=== PATIENT | male | born 1955 | race Caucasian/White ===

== ENCOUNTER 2017-02-12 07:16 | Outpatient (CLI) | payer BC ==
[2017-02-12 08:34] LABS: BASOPHILS % (AUTO) 0.4 % (0.0-2.0); EOSINOPHILS # (AUTO) 0.1 /CMM (0.0-0.7); EOSINOPHILS % (AUTO) 1.6 % (0.0-6.0); HEMATOCRIT 39 % (39-51); HEMOGLOBIN 12.9 g/dL (13.5-17.5); LYMPHOCYTES # (AUTO) 1.4 /CMM (0.8-4.8); LYMPHOCYTES % (AUTO) 30.8 % (20.0-44.0); MEAN CORPUSCULAR HEMOGLOBIN 28 PG (26.0-33.0); MEAN CORPUSCULAR HGB CONC 33 g/dl (31.0-36.0); MEAN CORPUSCULAR VOLUME 84 fL (80-96); MONOCYTES # (AUTO) 0.3 /CMM (0.1-1.30); MONOCYTES % (AUTO) 7.4 % (2.0-12.0); NEUTROPHILS # (AUTO) 2.7 /CMM (1.8-8.9); NEUTROPHILS % (AUTO) 59.8 % (43.0-81.0); PLATELET COUNT (AUTO) 235 /CMM (150-450); RDW COEFFICIENT OF VARIATION 14.1 (11.5-15.0); RED BLOOD CELL COUNT(AUTO) 4.61 MIL/uL (4.5-6.0); WHITE BLOOD COUNT (AUTO) 4.5 K/uL (4.3-11.0)
[2017-02-12 08:44] LABS: ALBUMIN 3.9 g/dL (3.4-5.0); BILIRUBIN,TOTAL 0.3 mg/dL (0.2-1.0); CALCIUM, SERUM 8.8 mg/dL (8.5-10.1); CREATININE 1.3 mg/dL (0.6-1.3); POTASSIUM 4.4 mmol/L (3.5-5.1); TOTAL PROTEIN, SERUM 7.1 g/dL (6.4-8.2)
[2017-02-12 08:46] LABS: APPEARANCE,URINE CLEAR (CLEAR); BILIRUBIN,URINE NEGATIVE (NEGATIVE); BLOOD, URINE NEGATIVE Ery/uL (NEGATIVE); COLOR,URINE YELLOW (YELLOW); KETONES,URINE NEGATIVE (NEGATIVE); LEUKOCYTE ESTERASE ,URINE NEGATIVE (NEGATIVE); NITRITE, URINE NEGATIVE (NEGATIVE); PH,URINE 5.5 (5.0-8.0); PROTEIN,URINE NEGATIVE (NEGATIVE); UGLUCOSE TRACE mg/dL (NEGATIVE); UROBILINOGEN,URINE 0.2 EU/dL (0.2)
[2017-02-12 09:01] LABS: PROSTATE SPECIFIC ANTIGEN SCR 1.97 ng/mL (0.00-4.00); THYROID STIMULATING HORMONE 2.632 uIU/mL (0.358-3.74)
[2017-02-12 09:59] LABS: ADD URINE CULTURE NO; BACTERIA,URINE None seen /HPF (None Seen); RBC,URINE NONE SEEN /HPF (0-2); SQUAMOUS EPITHELIAL CELL,UR Few /HPF (None Seen); WBC,URINE 0-2 /HPF (0-3)
[2017-02-13 11:22] LABS: VIT D, 25-HYDROXY 30.8 ng/mL (30.0-100.0)
== END 2017-02-12 23:59 | disposition home or self-care (01) ==
LOC: LAB 07:16
PROVIDERS: ATTEND Legal Medicine
DX: Z00.00 Encounter for general adult medical examination without abnormal findings (principal); E11.9 Type 2 diabetes mellitus without complications; I10 Essential (primary) hypertension; E78.00 Pure hypercholesterolemia, unspecified; E55.9 Vitamin D deficiency, unspecified
CPT/HCPCS: 36415; 80053-TC; 80061-TC; 81000-TC; 82043; 82306; 82728-TC; 82746; 83540-TC; 84153-TC; 84402-TC; 84443-TC; 84550-TC; 85025-TC

== ENCOUNTER 2017-09-11 22:19 | Inpatient (IN) | payer BC ==
[~2017-09-11] VITALS: Ht 175.3 cm; Wt 77.6 kg
--- NOTE | 2017-09-11 22:36 | NUR ---
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 PATIENT DENIES PAIN AT THIS TIME, AFEBRILE. NO SOB,. VSS. GOWNED PT AND PLACED ON TELE MONITOR. PENDING MD MCCRAY
--- NOTE | 2017-09-11 22:40 | NUR ---
IV ACCESS STARTED. BLOOD DRAWN FOR LABS.
[2017-09-11] MEDS ORDERED: ASPIRIN 81 MG TAB.CHEW ONE (22:51)
--- NOTE | 2017-09-11 22:54 | NUR ---
PT REPORTS HE TOOK ASA 81MG AT 7PM AND 325MG ASA AT 9PM TODAY. AWARE.
[2017-09-11] MEDS ORDERED: ASPIRIN 81 MG TAB.CHEW PO ONE (23:00)
[2017-09-11 23:11] LABS: BASOPHILS % (AUTO) 0.4 % (0.0-2.0); EOSINOPHILS # (AUTO) 0.1 /CMM (0.0-0.7); HEMATOCRIT 40 % (39-51); HEMOGLOBIN 13.4 g/dL (13.5-17.5); LYMPHOCYTES # (AUTO) 1.5 /CMM (0.8-4.8); LYMPHOCYTES % (AUTO) 24.8 % (20.0-44.0); MEAN CORPUSCULAR HEMOGLOBIN 28 PG (26.0-33.0); MEAN CORPUSCULAR HGB CONC 34 g/dl (31.0-36.0); MEAN CORPUSCULAR VOLUME 84 fL (80-96); MONOCYTES # (AUTO) 0.4 /CMM (0.1-1.30); MONOCYTES % (AUTO) 6.6 % (2.0-12.0); NEUTROPHILS % (AUTO) 67.2 % (43.0-81.0); PLATELET COUNT (AUTO) 235 /CMM (150-450); RDW COEFFICIENT OF VARIATION 13.5 (11.5-15.0); RED BLOOD CELL COUNT(AUTO) 4.75 MIL/uL (4.5-6.0); WHITE BLOOD COUNT (AUTO) 5.9 K/uL (4.3-11.0)
[2017-09-11] MEDS ORDERED: CHOL100040 PO (23:14)
[2017-09-11] MEDS ORDERED: OMEG500C PO (23:14)
[2017-09-11] MEDS ORDERED: METO25TA6 PO (23:14)
[2017-09-11] MEDS ORDERED: GLIM4TAB2 PO (23:14)
[2017-09-11] MEDS ORDERED: ENAL5TAB PO (23:14)
[2017-09-11] MEDS ORDERED: INSU3INS6 SUBCUT (23:14)
[2017-09-11] MEDS ORDERED: CLOP75TA2 PO (23:14)
[2017-09-11] MEDS ORDERED: FENO160T PO (23:14)
[2017-09-11] MEDS ORDERED: METF850T2 PO (23:14)
[2017-09-11] MEDS ORDERED: SIMV40TA5 PO (23:14)
[2017-09-11] MEDS ORDERED: ASPI81TA2 PO (23:14)
[2017-09-11 23:25] LABS: CALCIUM, SERUM 9.6 mg/dL (8.5-10.1); CARBON DIOXIDE 32 mmol/L (21-32); CHLORIDE 105 mmol/L (98-107); CREATININE 1.9 mg/dL (0.6-1.3); GLUCOSE 251 mg/dL (74-106); POTASSIUM 4.4 mmol/L (3.5-5.1); SODIUM SERUM 140 mmol/L (136-145); UREA NITROGEN, BLOOD 32 mg/dL (7-18)
[2017-09-11 23:28] LABS: ALANINE AMINOTRANSFERASE 29 U/L (12-78); ALKALINE PHOSPHATASE 41 U/L (46-116); ASPARTATE AMINOTRANSFERASE 16 U/L (15-37); BILIRUBIN,DIRECT 0.1 mg/dL (0.0-0.2); BILIRUBIN,TOTAL 0.3 mg/dL (0.2-1.0); TOTAL PROTEIN, SERUM 7.4 g/dL (6.4-8.2)
[2017-09-11 23:30] LABS: TROPONIN I < 0.017 ng/mL (0.00-0.056)
[2017-09-11 23:37] LABS: D-DIMER 0.19 mg/L(FEU (0.17-0.50); INR 1.01 (0.87-1.13); PROTHROMBIN TIME 10.5 SECS (9.5-12.7)
--- NOTE | 2017-09-12 00:09 | NUR ---
DR. PAULINE GUEVARA.
--- NOTE | 2017-09-12 00:40 | NUR ---
REPORT GIVEN TO LISA FITCH FOR TELE 108
[2017-09-12 01:00] VITALS: BP 145/84
[2017-09-12] MEDS ORDERED: IV NS 0.9% 1,000 ML IV PRN (01:00)
[2017-09-12] MEDS ORDERED: DEXTROSE 50%-WATER 50 ML DISP.SYRIN IV PRN ×2 (01:00→10:30)
[2017-09-12] MEDS ORDERED: NITROGLYCERIN PACKET 1 GM PACKET ONE (01:28)
[2017-09-12] MEDS ORDERED: MORPHINE SULFATE INJ 2 MG/ML DISP.SYRIN IV PRN (01:30)
[2017-09-12] MEDS ORDERED: ONDANSETRON HCL/PF 4 MG/2 ML VIAL IV PRN (01:30)
[2017-09-12] MEDS ORDERED: ACETAMINOPHEN 325 MG TABLET PO PRN (01:30)
[2017-09-12] MEDS ORDERED: NITROGLYCERIN 30 GM TUBE TP SCH (01:30)
[2017-09-12] MEDS: NITROGLYCERIN PACKET 1 GM PACKET TOP SCH ×5 (01:33→23:37)
[2017-09-12] MEDS ORDERED: EPINEPHRINE (1:1000) 1 MG/ML AMPUL ONE (01:56)
[2017-09-12] MEDS ORDERED: MORPHINE SULFATE INJ 2 MG/ML DISP.SYRIN ONE (02:30)
[2017-09-12] MEDS ORDERED: DEXAMETHASONE SOD PHOSPHATE 10 MG/ML VIAL ONE (03:16)
[2017-09-12] MEDS ORDERED: diphenhydrAMINE HCL 50 MG/ML VIAL ONE (03:16)
[2017-09-12] MEDS ORDERED: FAMOTIDINE/PF INJ 20 MG/2 ML VIAL IV ONE (03:16)
[2017-09-12 04:00] VITALS: BP 113/60
[2017-09-12 06:58] LABS: BASOPHILS % (AUTO) 0.4 % (0.0-2.0); EOSINOPHILS # (AUTO) 0.1 /CMM (0.0-0.7); EOSINOPHILS % (AUTO) 1.6 % (0.0-6.0); HEMATOCRIT 37 % (39-51); HEMOGLOBIN 12.6 g/dL (13.5-17.5); LYMPHOCYTES # (AUTO) 2.2 /CMM (0.8-4.8); MEAN CORPUSCULAR HEMOGLOBIN 29 PG (26.0-33.0); MEAN CORPUSCULAR HGB CONC 34 g/dl (31.0-36.0); MEAN CORPUSCULAR VOLUME 84 fL (80-96); MONOCYTES # (AUTO) 0.5 /CMM (0.1-1.30); MONOCYTES % (AUTO) 7.9 % (2.0-12.0); NEUTROPHILS % (AUTO) 58.1 % (43.0-81.0); PLATELET COUNT (AUTO) 177 /CMM (150-450); RDW COEFFICIENT OF VARIATION 13.9 (11.5-15.0); WHITE BLOOD COUNT (AUTO) 6.9 K/uL (4.3-11.0)
[2017-09-12 08:00] VITALS: BP 111/61
--- NOTE | 2017-09-12 08:00 | NUR ---
Initial Note Received bed side report at this time. Resting in bed, denying pain, denying chest pain. SR on telemonitor. no complications with IV, maintenance fluids infusing. ambulatory, steady gait. utilizes urinal. discussed plan of care. pt. verbalized understanding. call light in reach.
[2017-09-12] MEDS: PANTOPRAZOLE 40 MG VIAL IV SCH (09:00)
[2017-09-12] MEDS: BLOOD SUGAR DIAGNOSTIC 1 EACH STRIP IN SCH ×4 (09:10→22:21)
[2017-09-12] MEDS: ASPIRIN 81 MG TAB.CHEW PO SCH (09:11)
--- NOTE | 2017-09-12 09:22 | NUR ---
RN NOTE computer system down until 0900- unable to see orders. accucheck done late, result- 154. no s/s of hyperglycemia. patient states he does not take regular insulin at home, instead takes Lantus in the morning. will inform MD.
--- NOTE | 2017-09-12 09:30 | NUR ---
TELE1/RN ENDORSED TO CONTINUE CARE REPORT RECEIVED FROM NURSE HOPE TO CONTINUE CARE. PT RECEIVED AWAKE SITTING IN BED, A/O X 4, PT DENIES ANY SYMPTOMS, NO ACUTE CHANGE OF CONDITION NOTED. ON ROOM AIR SATURATING @ 100%, LUNG SOUNDS CLEAR. ON TELE WITH SINUS RHYTHM, HR 59. WITH ON GOING IV INFUSION OF NS @ 75CC/HR, IV SITE PATENT WITH NO S/S OF INFECTION. PT ON NPO STATUS AT THIS TIME. REMAINING AM MEDS TO BE GIVEN. CL WITHIN REACHED AND SAFETY MAINTAINED. ON GOING MONITORING.
[2017-09-12] MEDS ORDERED: INSULIN REGULAR, HUMAN 100 UNIT/ML 3 ML VIAL SQ PRN (10:30)
[2017-09-12 10:35] LABS: CALCIUM, SERUM 8.9 mg/dL (8.5-10.1); CREATININE 1.5 mg/dL (0.6-1.3); POTASSIUM 4.3 mmol/L (3.5-5.1)
--- NOTE | 2017-09-12 10:35 | NUR ---
TELE1/RN ORDER VERIFIED SPOKE TO DR. CARPENTER TO VERIFY ADMITTING ORDERS: ON CT OF THE ABDOMEN AND PELVIS, TO CANCELL D/T CREATININE LEVEL OF 1.9, ALSO HOLING OF HOME MEDS, LANTUS 10 UNITS DAILY, PER MD TO RESUME AFTER PT HAS COMPLETED MYOCARDIAL TEST AND RESUME DIET OF 2GM, 1800 CALORIE DIET. ORDERS NOTED AND CARRIED. PT MADE AWARE.
[2017-09-12] MEDS: ENOXAPARIN SODIUM 80 MG/0.8 ML DISP.SYRIN SQ SCH ×2 (10:36→20:15)
--- NOTE | 2017-09-12 10:45 | NUR ---
TELE1/RN MYOCARDIAL STRESS TEST CONSENT FOR MYOCARDIAL STRESS TEST OBTAINED FROM PT. CONSENT FILED IN PT'S CHART.
[2017-09-12 12:00] VITALS: BP 107/62
[2017-09-12] MEDS ORDERED: BLOOD SUGAR DIAGNOSTIC 1 EACH STRIP IN SCH (12:00)
--- NOTE | 2017-09-12 12:20 | NUR ---
TELE1/RN NOON ROUNDS GLUCOSE CHECKED, 134, NO COVERAGE TO BE GIVEN, PT ON NPO STATUS. PT DENIES ANY CHEST PAIN, NO. 2 TROPONIN DRAWN. NO ACUTE CHANGE OF CONDITION NOTED. ON GOING MONITORING.
--- NOTE | 2017-09-12 13:45 | NUR ---
TELE1/RN MYOCARDIAL STRESS TEST PT LEFT TELE1 UNIT IN STABLE CONDITION VIA WHEELCHAIR ACCOMPANIED BY OFFICE HELPER STEWART FOR MYOCARDIAL STRESS TEST.
[2017-09-12] MEDS ORDERED: REGADENOSON 0.4 MG/5 ML DISP.SYRIN IVP ONE (14:00)
--- NOTE | 2017-09-12 14:35 | NUR ---
TELE1/RN BACK FROM STRESS TEST PT RETURNED TO TELE1 FLOOR IN STABLE CONDITION. MONITORING CONTINUED.
[2017-09-12 16:00] VITALS: BP 113/60
[2017-09-12] MEDS: INSULIN REGULAR, HUMAN 100 UNIT/ML 3 ML VIAL SQ PRN ×2 (17:11→22:22)
--- NOTE | 2017-09-12 17:45 | NUR ---
TELE1/RN AFTERNOON ROUNDS PT AWAKE SITTING IN BED WITH AT BEDSIDE, DENIES ANY SYMPTOMS, NO ACUTE CHANGE OF CONDITION. SCHEDULED PM MEDS GIVEN. ON GOING MONITORING.
--- NOTE | 2017-09-12 19:19 | NUR ---
TELE1/RN AM SHIFT END NOTES ALL NEEDS MET. NO ACUTE CHANGE OF CONDITION NOTED DURING THE SHIFT. PT ENDORSED TO PM NURSE TO CONTINUE CARE. CL WITHIN REACHED AND SAFETY MAINTAINED.
[2017-09-12 20:00] VITALS: BP 113/65
[2017-09-12] MEDS ORDERED: CALCIUM CARBONATE 500 MG TAB.CHEW PO PRN (20:00)
--- NOTE | 2017-09-12 20:00 | NUR ---
RN:TELE: PT RECEIVED IN BED A/OX4, DENIES CHEST PAIN OR SOB. NO DISTRESS NOTED. AT THE BEDSIDE. EXPLAINED ALL POC. CALL LIGHT IN REACH. PT ABLE TO MAKE NEEDS KNOWN.
[2017-09-12] MEDS: METOPROLOL TARTRATE 25 MG TABLET PO SCH (20:14)
[2017-09-12] MEDS ORDERED: INSULIN DETEMIR 100 UNIT/ML CARTRIDGE SQ SCH (22:00)
[2017-09-12] MEDS ORDERED: LANTUS SQ SCH (22:00)
[2017-09-12] MEDS ORDERED: SIMVASTATIN 40 MG TABLET PO SCH (22:00)
--- NOTE | 2017-09-12 22:35 | NUR ---
RN:TELE: PT COMPLAINING OF MIDBACK PAIN 07/03. PT GIVEN MORPHINE PER MD ORDERS. VITAL SIGNS TAKEN AND ARE STABLE. PT REPORTS IMPROVEMENT OF PAIN AFTER MORPHINE ADMIN. SPOKE WITH COOKING SHOW HOST REGARDING POSSIBLE BACK PAIN BEING RELATED TO KIDNEYS RATHER THAN CARDIAC IN NATURE. NEW ORDERS RECEIVED FOR RENAL US, UA AND URINE CX. UPDATED FAMILY AND PT REGARDING POC. ALL NEEDS ATTENDED TO. WILL CONTINUE TO MONITOR CLOSELY.
[2017-09-13] VITALS: BP 95/59
--- NOTE | 2017-09-13 01:09 | NUR ---
RN:TELE: PT REPORTS MINIMAL BACK PAIN. AM LABS ORDERED PER MD. 0000 NITRO HELD DUE TO SPECIFIED PARAMETERS SBP LESS THAN 110, PT MIDNIGHT BP WAS 95 SYSTOLIC. NO DISTRESS NOTED. WILL CONTINUE TO MONITOR CLOSELY.
--- NOTE | 2017-09-13 03:57 | NUR ---
RN:TELE: PT DENIES ANY COMPLAINTS AT THIS TIME AND REPORTS SLEEPING WELL. WILL CONTINUE TO MONITOR CLOSELY.
[2017-09-13 04:00] VITALS: BP 97/59
[2017-09-13] MEDS: NITROGLYCERIN PACKET 1 GM PACKET TOP SCH ×2 (06:00→12:09)
[2017-09-13 06:33] LABS: BASOPHILS % (AUTO) 0.4 % (0.0-2.0); EOSINOPHILS # (AUTO) 0.1 /CMM (0.0-0.7); EOSINOPHILS % (AUTO) 1.5 % (0.0-6.0); HEMATOCRIT 36 % (39-51); HEMOGLOBIN 12.1 g/dL (13.5-17.5); LYMPHOCYTES # (AUTO) 1.7 /CMM (0.8-4.8); LYMPHOCYTES % (AUTO) 28.6 % (20.0-44.0); MEAN CORPUSCULAR HEMOGLOBIN 29 PG (26.0-33.0); MEAN CORPUSCULAR HGB CONC 34 g/dl (31.0-36.0); MEAN CORPUSCULAR VOLUME 84 fL (80-96); MONOCYTES # (AUTO) 0.4 /CMM (0.1-1.30); NEUTROPHILS # (AUTO) 3.8 /CMM (1.8-8.9); NEUTROPHILS % (AUTO) 62.5 % (43.0-81.0); PLATELET COUNT (AUTO) 202 /CMM (150-450); RDW COEFFICIENT OF VARIATION 13.7 (11.5-15.0); RED BLOOD CELL COUNT(AUTO) 4.24 MIL/uL (4.5-6.0)
[2017-09-13 06:55] LABS: APPEARANCE,URINE CLEAR (CLEAR); BILIRUBIN,URINE NEGATIVE (NEGATIVE); BLOOD, URINE NEGATIVE Ery/uL (NEGATIVE); COLOR,URINE YELLOW (YELLOW); KETONES,URINE NEGATIVE (NEGATIVE); LEUKOCYTE ESTERASE ,URINE NEGATIVE (NEGATIVE); NITRITE, URINE NEGATIVE (NEGATIVE); PROTEIN,URINE NEGATIVE (NEGATIVE); UGLUCOSE NEGATIVE (NEGATIVE); UROBILINOGEN,URINE 0.2 EU/dL (0.2)
[2017-09-13 07:13] LABS: ALBUMIN 3.5 g/dL (3.4-5.0); BILIRUBIN,TOTAL 0.3 mg/dL (0.2-1.0); CALCIUM, SERUM 8.6 mg/dL (8.5-10.1); CREATININE 1.3 mg/dL (0.6-1.3); MAGNESIUM 1.6 mg/dL (1.8-2.4); PHOSPHORUS 4.2 mg/dL (2.5-4.9); POTASSIUM 3.9 mmol/L (3.5-5.1); TOTAL PROTEIN, SERUM 6.4 g/dL (6.4-8.2)
[2017-09-13 08:00] VITALS: BP_SYST 123; BP_DIAS 64; BP_DIAS 69
--- NOTE | 2017-09-13 08:00 | NUR ---
TELE1/RN AM SHIFT INITIAL NOTES RECEIVED PT AWAKE SITTING IN BED, A/O X 4, DENIES ANY CHEST PAIN, NO SOB NOTED. ON ROOM AIR SATURATING @ 96%, LUNG SOUNDS CLEAR. ON TELE WITH SINUS RHYTHM, HR 66. IV SITE FLUSHED, PATENT, WITH NO S/S OF INFECTION, SL. PT IS COMFORTABLE AT THIS TIME. SCHEDULED AM MEDS TO BE GIVEN. AWAITING FOR ULTRASOUND OF THE KIDNEYS. CL WITHIN REACHED AND SAFETY MAINTAINED. ON GOING MONITORING.
[2017-09-13] MEDS: BLOOD SUGAR DIAGNOSTIC 1 EACH STRIP IN SCH ×2 (08:07→11:57)
[2017-09-13] MEDS: ASPIRIN 81 MG TAB.CHEW PO SCH (08:08)
[2017-09-13] MEDS: METOPROLOL TARTRATE 25 MG TABLET PO SCH (08:08)
[2017-09-13] MEDS: ENOXAPARIN SODIUM 80 MG/0.8 ML DISP.SYRIN SQ SCH (08:09)
[2017-09-13] MEDS: INSULIN REGULAR, HUMAN 100 UNIT/ML 3 ML VIAL SQ PRN ×2 (08:09→12:08)
[2017-09-13] MEDS: PANTOPRAZOLE 40 MG VIAL IV SCH (08:10)
--- NOTE | 2017-09-13 10:00 | NUR ---
TELE1/RN ROUNDS - DR. CARPENTER UPDATED PT'S CONDITION. PT SEEN & EXAMINED BY DR. CARPENTER. NO NEW ORDERS RECEIVED AT THIS TIME. MONITORING CONTINUED.
[2017-09-13] MEDS ORDERED: MAGNESIUM OXIDE 400 MG TABLET PO ONE (10:30)
[2017-09-13 12:00] VITALS: BP 132/80
[2017-09-13 12:09] VITALS: BP 132/80
--- NOTE | 2017-09-13 12:45 | NUR ---
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 CARPENTER VIA VOICEMAIL. DISCHARGE INSTRUCTIONS GIVEN TO PT, VERBALIZED UNDERSTANDING. DISCHARGE DOCUMENTS INCLUDING PRESCRIPTION GIVEN TO PT. IV SITES REMOVED, PRESSURE DRESSING APPLIED, NO S/S OF INFECTION. ID BANDS REMOVED. PERSONAL BELONGINGS RETURNED TO PT, INVENTORY LOG SIGNED OFF. PT LEFT TELE1 UNIT WALKING WITH STEADY GAIT IN STABLE CONDITION, ACCOMPANIED BY NURSE EDUCATOR TO HOSPITAL LOBBY.
== END 2017-09-13 13:19 | disposition home or self-care (01) | DRG 391 ==
LOC: ER 22:22 → TELE1 09-12 00:23
PROVIDERS: ADMIT Legal Medicine; ATTEND Legal Medicine
DX: K21.9 Gastro-esophageal reflux disease without esophagitis (principal); N17.0 Acute kidney failure with tubular necrosis; I25.10 Atherosclerotic heart disease of native coronary artery without angina pectoris; E11.22 Type 2 diabetes mellitus with diabetic chronic kidney disease; N18.3 Chronic kidney disease, stage 3 (moderate); E11.65 Type 2 diabetes mellitus with hyperglycemia; E78.5 Hyperlipidemia, unspecified; I12.9 Hypertensive chronic kidney disease with stage 1 through stage 4 chronic kidney disease, or unspecified chronic kidney disease; Z87.891 Personal history of nicotine dependence; Z98.61 Coronary angioplasty status; I25.2 Old myocardial infarction; I25.119 Atherosclerotic heart disease of native coronary artery with unspecified angina pectoris; Z79.82 Long term (current) use of aspirin
CPT/HCPCS: 36415; 71010-TC; 76770-TC; 80048-TC; 80053-TC; 80061-TC; 80076-TC; 81000-TC; 82962-TC; 83735-TC; 84100-TC; 84484-TC; 85025-TC; 85378-TC; 85730-TC; 86850-TC; 87081-TC; 87086-TC; A4606; A9502; C9113; J0171; J1100; J1200; J1650; J1815; J2270; J2785; J3490; J7030; Z7610

== ENCOUNTER 2018-04-06 09:48 | Outpatient (CLI) | payer BC ==
[~2018-04-06 09:48] MED LIST: ASPI-1169 PO; CHOL100040 PO; CLOP75TA15 PO; ENAL5TAB PO; FENO160T PO; GLIM4TAB2 PO; INSU3INS6 SUBCUT; METF-441 PO; METO25TA6 PO; OMEG500C PO; SIMV40TA5 PO
[2018-04-06 11:04] LABS: APPEARANCE,URINE CLEAR (CLEAR); BILIRUBIN,URINE NEGATIVE (NEGATIVE); BLOOD, URINE NEGATIVE Ery/uL (NEGATIVE); COLOR,URINE YELLOW (YELLOW); KETONES,URINE NEGATIVE (NEGATIVE); LEUKOCYTE ESTERASE ,URINE NEGATIVE (NEGATIVE); NITRITE, URINE NEGATIVE (NEGATIVE); PH,URINE 6.5 (5.0-8.0); PROTEIN,URINE NEGATIVE (NEGATIVE); UGLUCOSE 3+ mg/dL (NEGATIVE); UROBILINOGEN,URINE 0.2 EU/dL (0.2)
[2018-04-06 11:05] LABS: BASOPHILS % (AUTO) 0.4 % (0.0-2.0); EOSINOPHILS % (AUTO) 1.4 % (0.0-6.0); HEMATOCRIT 40 % (39-51); HEMOGLOBIN 13.5 g/dL (13.5-17.5); LYMPHOCYTES # (AUTO) 1.4 /CMM (0.8-4.8); LYMPHOCYTES % (AUTO) 28.7 % (20.0-44.0); MEAN CORPUSCULAR HGB CONC 34 g/dl (31.0-36.0); MEAN CORPUSCULAR VOLUME 84 fL (80-96); MONOCYTES # (AUTO) 0.3 /CMM (0.1-1.30); MONOCYTES % (AUTO) 6.9 % (2.0-12.0); NEUTROPHILS % (AUTO) 62.6 % (43.0-81.0); PLATELET COUNT (AUTO) 250 /CMM (150-450); RDW COEFFICIENT OF VARIATION 13.1 (11.5-15.0); RED BLOOD CELL COUNT(AUTO) 4.73 MIL/uL (4.5-6.0); WHITE BLOOD COUNT (AUTO) 4.8 K/uL (4.3-11.0)
[2018-04-06 11:36] LABS: ALBUMIN 4.3 g/dL (3.4-5.0); BILIRUBIN,TOTAL 0.4 mg/dL (0.2-1.0); CALCIUM, SERUM 6.9 mg/dL (8.5-10.1); CREATININE 1.4 mg/dL (0.6-1.3); POTASSIUM 4.5 mmol/L (3.5-5.1); TOTAL PROTEIN, SERUM 7.9 g/dL (6.4-8.2)
[2018-04-06 11:45] LABS: PROSTATE SPECIFIC ANTIGEN SCR 1.89 ng/mL (0.00-4.00); THYROID STIMULATING HORMONE 0.933 uIU/mL (0.358-3.74); URIC ACID 3.1 mg/dL (2.6-7.2)
[2018-04-06 11:55] LABS: RBC,URINE 0-2 /HPF (0-2); WBC,URINE 0-2 /HPF (0-3)
[2018-04-06 11:56] LABS: BACTERIA,URINE Rare /HPF (None Seen); SQUAMOUS EPITHELIAL CELL,UR Rare /HPF (None Seen)
== END 2018-04-06 23:59 | disposition home or self-care (01) ==
LOC: US 09:48
PROVIDERS: ATTEND Legal Medicine
DX: Z12.5 Encounter for screening for malignant neoplasm of prostate (principal); E11.9 Type 2 diabetes mellitus without complications; I10 Essential (primary) hypertension; N28.1 Cyst of kidney, acquired
CPT/HCPCS: 36415; 80053-TC; 80061-TC; 81000-TC; 82306; 82728-TC; 82746; 83540-TC; 84153-TC; 84402-TC; 84439-TC; 84443-TC; 84550-TC; 85025-TC

== ENCOUNTER 2018-04-18 18:47 | Emergency (ER) | payer BC ==
[~2018-04-18] VITALS: Ht 175.3 cm; Wt 73.9 kg
--- NOTE | 2018-04-18 20:55 | NUR ---
PT SEEN BY
[2018-04-18] MEDS ORDERED: HYDROCODONE/APAP 5/325MG 1 EACH TABLET PO ONE (21:00)
[2018-04-18] MEDS ORDERED: HYDROCODONE/APAP 5/325MG 1 EACH TABLET ONE (21:06)
[2018-04-18 21:12] VITALS: BP 124/83
--- NOTE | 2018-04-18 21:14 | NUR ---
Patient discharged to home in stable condition. Written and verbal after care instructions given. Patient verbalizes understanding of instruction AND RX. Crutches dispensed. Pt instructed on proper use of crutches. Patient able to demonstrate correct use of crutches. PT'S IS DRIVING PT HOME. PT REC'D AN JADA BANDAGE TO THE RT WRIST/HAND. VSS. PT AMBULATED OUT WITH CRUTCHES.
== END 2018-04-18 21:13 | disposition home or self-care (01) ==
LOC: ER 18:54
DX: M25.552 Pain in left hip (principal); M25.531 Pain in right wrist; I10 Essential (primary) hypertension; E11.9 Type 2 diabetes mellitus without complications; E78.5 Hyperlipidemia, unspecified; Z79.82 Long term (current) use of aspirin; Z79.4 Long term (current) use of insulin; Z79.84 Long term (current) use of oral hypoglycemic drugs; V09.9XXA Pedestrian injured in unspecified transport accident, initial encounter; Y93.89 Activity, other specified; Y92.89 Other specified places as the place of occurrence of the external cause; Y99.8 Other external cause status
CPT/HCPCS: 73110; 73502; A4606; Z7610

== ENCOUNTER 2019-09-08 07:43 | Outpatient (CLI) | payer BC ==
[2019-09-08 09:13] LABS: BASOPHILS % (AUTO) 0.5 % (0.0-2.0); EOSINOPHILS % (AUTO) 1.2 % (0.0-6.0); HEMATOCRIT 41 % (39-51); HEMOGLOBIN 13.8 g/dL (13.5-17.5); LYMPHOCYTES # (AUTO) 1.2 /CMM (0.8-4.8); LYMPHOCYTES % (AUTO) 27.5 % (20.0-44.0); MEAN CORPUSCULAR HGB CONC 34 g/dl (31.0-36.0); MEAN CORPUSCULAR VOLUME 86 fL (80-96); MONOCYTES # (AUTO) 0.4 /CMM (0.1-1.30); MONOCYTES % (AUTO) 8.6 % (2.0-12.0); NEUTROPHILS # (AUTO) 2.7 /CMM (1.8-8.9); NEUTROPHILS % (AUTO) 62.2 % (43.0-81.0); PLATELET COUNT (AUTO) 206 /CMM (150-450); RED BLOOD CELL COUNT(AUTO) 4.79 MIL/uL (4.5-6.0); WHITE BLOOD COUNT (AUTO) 4.3 K/uL (4.3-11.0)
[2019-09-08 09:27] LABS: ALBUMIN 4.1 g/dL (3.4-5.0); BILIRUBIN,TOTAL 0.4 mg/dL (0.2-1.0); CALCIUM, SERUM 9.1 mg/dL (8.5-10.1); CREATININE 1.3 mg/dL (0.6-1.3); POTASSIUM 3.9 mmol/L (3.5-5.1); TOTAL PROTEIN, SERUM 7.6 g/dL (6.4-8.2)
[2019-09-08 10:42] LABS: APPEARANCE,URINE Clear (CLEAR); BILIRUBIN,URINE Negative (NEGATIVE); BLOOD, URINE Negative Ery/uL (NEGATIVE); COLOR,URINE Yellow (YELLOW); KETONES,URINE Negative (NEGATIVE); LEUKOCYTE ESTERASE ,URINE Negative (NEGATIVE); NITRITE, URINE Negative (NEGATIVE); PH,URINE 8.5 (5.0-8.0); PROTEIN,URINE Trace mg/dl (NEGATIVE); UGLUCOSE 500 MG/DL mg/dL (NEGATIVE); UROBILINOGEN,URINE 0.2 EU/dL (0.2)
[2019-09-08 10:46] LABS: BACTERIA,URINE Rare /HPF (None Seen); RBC,URINE 0-2 /HPF (0-2); SQUAMOUS EPITHELIAL CELL,UR Rare /HPF (None Seen); WBC,URINE 0-2 /HPF (0-3)
[2019-09-08 11:06] LABS: PROSTATE SPECIFIC ANTIGEN SCR 2.62 ng/mL (0.00-4.00); THYROID STIMULATING HORMONE 1.225 uIU/mL (0.358-3.74); URIC ACID 2.8 mg/dL (2.6-7.2)
[2019-09-09 08:06] LABS: FOLIC ACID 17.5 ng/mL (>3.0)
== END 2019-09-08 23:59 | disposition home or self-care (01) ==
LOC: LAB 07:43
PROVIDERS: ATTEND Legal Medicine
DX: Z00.00 Encounter for general adult medical examination without abnormal findings (principal); D64.9 Anemia, unspecified; E55.9 Vitamin D deficiency, unspecified; E11.9 Type 2 diabetes mellitus without complications; E78.00 Pure hypercholesterolemia, unspecified; I10 Essential (primary) hypertension; E03.9 Hypothyroidism, unspecified; I25.10 Atherosclerotic heart disease of native coronary artery without angina pectoris; Z87.891 Personal history of nicotine dependence
CPT/HCPCS: 36415; 80053-TC; 80061-TC; 81000-TC; 82306; 82626; 82728-TC; 83540-TC; 84153-TC; 84402; 84403; 84443-TC; 84550-TC; 85025-TC

== ENCOUNTER 2019-09-09 08:40 | Outpatient (CLI) | payer BC ==
[~2019-09-09 08:40] MED LIST changes: -GLIM4TAB2 PO; +GLIM4TAB4 PO; +SIMV-49 PO; -SIMV40TA5 PO
== END 2019-09-09 23:59 | disposition home or self-care (01) ==
LOC: US 08:40
DX: N28.1 Cyst of kidney, acquired (principal)
CPT/HCPCS: 76770-TC

== ENCOUNTER 2019-09-21 23:39 | Emergency (ER) | payer BC ==
[~2019-09-21] VITALS: Ht 167.6 cm; Wt 73.9 kg
[~2019-09-21 23:39] MED LIST changes: +GLIM4TAB2 PO; -GLIM4TAB4 PO; -SIMV-49 PO; +SIMV40TA5 PO
--- NOTE | 2019-09-22 00:17 | NUR ---
PT BIB SELF FROM HOME C/O: EPIGASTRIC PAIN 05/03 SINCE 4PM, + SOB TO ER BED 3 CONECTED TO LADLER AWAITING MED EVAL
[2019-09-22] MEDS ORDERED: ONDANSETRON HCL/PF 4 MG/2 ML VIAL ONE (00:19)
[2019-09-22] MEDS ORDERED: MORPHINE SULFATE INJ 4 MG/ML DISP.SYRIN ONE (00:20)
[2019-09-22] MEDS ORDERED: IV NS 0.9% 1,000 ML BAG IV ONE (00:30)
[2019-09-22] MEDS ORDERED: ONDANSETRON HCL/PF 4 MG/2 ML VIAL IVP ONE (00:30)
[2019-09-22] MEDS ORDERED: MORPHINE SULFATE INJ 2 MG/ML DISP.SYRIN IV ONE (00:30)
[2019-09-22 00:32] LABS: BASOPHILS % (AUTO) 0.6 % (0.0-2.0); EOSINOPHILS % (AUTO) 0.9 % (0.0-6.0); HEMATOCRIT 38 % (39-51); HEMOGLOBIN 12.7 g/dL (13.5-17.5); LYMPHOCYTES % (AUTO) 15.9 % (20.0-44.0); MEAN CORPUSCULAR HGB CONC 33 g/dl (31.0-36.0); MEAN CORPUSCULAR VOLUME 87 fL (80-96); MONOCYTES # (AUTO) 0.4 /CMM (0.1-1.30); MONOCYTES % (AUTO) 7.2 % (2.0-12.0); NEUTROPHILS # (AUTO) 4.6 /CMM (1.8-8.9); NEUTROPHILS % (AUTO) 75.4 % (43.0-81.0); PLATELET COUNT (AUTO) 210 /CMM (150-450); RED BLOOD CELL COUNT(AUTO) 4.41 MIL/uL (4.5-6.0); WHITE BLOOD COUNT (AUTO) 6.1 K/uL (4.3-11.0)
[2019-09-22 00:57] LABS: ALANINE AMINOTRANSFERASE 21 U/L (12-78); ALBUMIN 3.9 g/dL (3.4-5.0); ALKALINE PHOSPHATASE 40 U/L (46-116); ASPARTATE AMINOTRANSFERASE 14 U/L (15-37); BILIRUBIN,DIRECT 0.1 mg/dL (0.0-0.2); BILIRUBIN,TOTAL 0.2 mg/dL (0.2-1.0); CARBON DIOXIDE 28 mmol/L (21-32); CHLORIDE 103 mmol/L (98-107); CREATININE 1.5 mg/dL (0.6-1.3); LIPASE 117 U/L (73-393); POTASSIUM 4.6 mmol/L (3.5-5.1); SODIUM SERUM 133 mmol/L (136-145); TOTAL PROTEIN, SERUM 7.1 g/dL (6.4-8.2); UREA NITROGEN, BLOOD 27 mg/dL (7-18)
[2019-09-22 01:01] LABS: CALCIUM, SERUM 9.5 mg/dL (8.5-10.1)
[2019-09-22 01:02] LABS: GLUCOSE 388 mg/dL (74-106)
[2019-09-22] MEDS ORDERED: HYDROMORPHONE INJ 0.5 MG/0.5 ML SYRINGE IV ONE (02:00)
[2019-09-22] MEDS ORDERED: HYDROMORPHONE 1 MG/1 ML DISP.SYRIN ONE (02:17)
[2019-09-22 02:45] LABS: APPEARANCE,URINE CLEAR (CLEAR); BILIRUBIN,URINE NEGATIVE (NEGATIVE); BLOOD, URINE NEGATIVE Ery/uL (NEGATIVE); COLOR,URINE YELLOW (YELLOW); KETONES,URINE NEGATIVE (NEGATIVE); LEUKOCYTE ESTERASE ,URINE NEGATIVE (NEGATIVE); NITRITE, URINE NEGATIVE (NEGATIVE); PROTEIN,URINE NEGATIVE (NEGATIVE); UGLUCOSE >=1000 mg/dL (NEGATIVE); UROBILINOGEN,URINE 0.2 EU/dL (0.2)
[2019-09-22 02:54] LABS: BACTERIA,URINE Few /HPF (None Seen); RBC,URINE 0-2 /HPF (0-2); SQUAMOUS EPITHELIAL CELL,UR Rare /HPF (None Seen); WBC,URINE 0-2 /HPF (0-3)
--- NOTE | 2019-09-22 03:33 | NUR ---
Patient discharged to home in stable condition. Written and verbal after care instructions given. Patient verbalizes understanding of instruction.
[2019-09-22 03:34] VITALS: BP 155/87
== END 2019-09-22 03:35 | disposition home or self-care (01) ==
LOC: ER 23:40
DX: K80.50 Calculus of bile duct without cholangitis or cholecystitis without obstruction (principal); I10 Essential (primary) hypertension; E78.5 Hyperlipidemia, unspecified; E11.9 Type 2 diabetes mellitus without complications; F10.10 Alcohol abuse, uncomplicated; Y90.9 Presence of alcohol in blood, level not specified; Z79.82 Long term (current) use of aspirin; Z79.899 Other long term (current) drug therapy; Z79.4 Long term (current) use of insulin; Z98.890 Other specified postprocedural states
CPT/HCPCS: 36415; 71045; 74176; 76705; 80048; 80076; 81001; 83690; 84484; 85025; 85730; 93005; 96374; 96375; 99284; J1170; J2270; J2405; 81000-TC

== ENCOUNTER 2020-07-06 08:03 | Outpatient (CLI) | payer BC ==
[~2020-07-06 08:03] MED LIST changes: -GLIM4TAB2 PO; +GLIM4TAB37 PO; +SIMV-49 PO; -SIMV40TA5 PO
[2020-07-06 08:52] LABS: BASOPHILS % (AUTO) 0.6 % (0.0-2.0); EOSINOPHILS % (AUTO) 0.9 % (0.0-6.0); HEMATOCRIT 43 % (39-51); HEMOGLOBIN 14.4 g/dL (13.5-17.5); LYMPHOCYTES # (AUTO) 1.2 /CMM (0.8-4.8); LYMPHOCYTES % (AUTO) 26.3 % (20.0-44.0); MEAN CORPUSCULAR HGB CONC 33 g/dl (31.0-36.0); MEAN CORPUSCULAR VOLUME 86 fL (80-96); MONOCYTES # (AUTO) 0.4 /CMM (0.1-1.30); MONOCYTES % (AUTO) 7.6 % (2.0-12.0); NEUTROPHILS % (AUTO) 64.6 % (43.0-81.0); PLATELET COUNT (AUTO) 223 /CMM (150-450); RED BLOOD CELL COUNT(AUTO) 5.04 MIL/uL (4.5-6.0); WHITE BLOOD COUNT (AUTO) 4.6 K/uL (4.3-11.0)
[2020-07-06 08:53] LABS: APPEARANCE,URINE CLEAR (CLEAR); BILIRUBIN,URINE NEGATIVE (NEGATIVE); BLOOD, URINE NEGATIVE Ery/uL (NEGATIVE); COLOR,URINE YELLOW (YELLOW); KETONES,URINE NEGATIVE (NEGATIVE); LEUKOCYTE ESTERASE ,URINE NEGATIVE (NEGATIVE); NITRITE, URINE NEGATIVE (NEGATIVE); PH,URINE 5.5 (5.0-8.0); PROTEIN,URINE NEGATIVE (NEGATIVE); UGLUCOSE 250 MG/DL mg/dL (NEGATIVE); UROBILINOGEN,URINE 0.2 EU/dL (0.2)
[2020-07-06 09:18] LABS: PROSTATE SPECIFIC ANTIGEN SCR 2.88 ng/mL (0.00-4.00); THYROID STIMULATING HORMONE 1.212 uIU/mL (0.358-3.74); URIC ACID 3.8 mg/dL (2.6-7.2)
[2020-07-06 10:10] LABS: ALBUMIN 4.1 g/dL (3.4-5.0); BILIRUBIN,TOTAL 0.5 mg/dL (0.2-1.0); CALCIUM, SERUM 9.4 mg/dL (8.5-10.1); CREATININE 1.5 mg/dL (0.6-1.3); POTASSIUM 3.9 mmol/L (3.5-5.1); TOTAL PROTEIN, SERUM 8.1 g/dL (6.4-8.2)
[2020-07-07 08:07] LABS: FOLIC ACID > 20.0 ng/mL (>3.0)
== END 2020-07-06 23:59 | disposition home or self-care (01) ==
LOC: LAB 08:03
PROVIDERS: ATTEND Legal Medicine
DX: I10 Essential (primary) hypertension (principal); E11.9 Type 2 diabetes mellitus without complications; E03.9 Hypothyroidism, unspecified; E78.00 Pure hypercholesterolemia, unspecified; D64.9 Anemia, unspecified; E55.9 Vitamin D deficiency, unspecified; Z00.00 Encounter for general adult medical examination without abnormal findings
CPT/HCPCS: 36415; 80053-TC; 80061-TC; 81000-TC; 82306; 82728-TC; 83540-TC; 84153-TC; 84402; 84403; 84439-TC; 84443-TC; 84550-TC; 85025-TC

== ENCOUNTER 2020-07-11 11:01 | Outpatient (CLI) | payer BC | END 2020-07-11 23:59 | disposition home or self-care (01) | LOC: MRI 11:01 | PROVIDERS: ATTEND Legal Medicine | DX: M19.012 Primary osteoarthritis, left shoulder (principal); M75.92 Shoulder lesion, unspecified, left shoulder | CPT/HCPCS: 73221-TC ==

== ENCOUNTER 2021-03-12 09:37 | Outpatient (CLI) | payer BC ==
[~2021-03-12 09:37] MED LIST changes: +ENAL-78 PO; -ENAL5TAB PO
[2021-03-12 11:02] LABS: BASOPHILS % (AUTO) 0.7 % (0.0-2.0); EOSINOPHILS % (AUTO) 1.2 % (0.0-6.0); HEMATOCRIT 41 % (39-51); HEMOGLOBIN 13.9 g/dL (13.5-17.5); LYMPHOCYTES # (AUTO) 1.2 /CMM (0.8-4.8); LYMPHOCYTES % (AUTO) 28.5 % (20.0-44.0); MEAN CORPUSCULAR HGB CONC 34 g/dl (31.0-36.0); MEAN CORPUSCULAR VOLUME 85 fL (80-96); MONOCYTES # (AUTO) 0.4 /CMM (0.1-1.30); MONOCYTES % (AUTO) 9.3 % (2.0-12.0); NEUTROPHILS # (AUTO) 2.5 /CMM (1.8-8.9); NEUTROPHILS % (AUTO) 60.3 % (43.0-81.0); PLATELET COUNT (AUTO) 195 /CMM (150-450); RED BLOOD CELL COUNT(AUTO) 4.84 MIL/uL (4.5-6.0); WHITE BLOOD COUNT (AUTO) 4.2 K/uL (4.3-11.0)
[2021-03-12 11:07] LABS: BILIRUBIN,URINE NEGATIVE (NEGATIVE); COLOR,URINE YELLOW (YELLOW); LEUKOCYTE ESTERASE ,URINE NEGATIVE (NEGATIVE); NITRITE, URINE NEGATIVE (NEGATIVE); PROTEIN,URINE NEGATIVE (NEGATIVE); UGLUCOSE >=1000 mg/dL (NEGATIVE); UROBILINOGEN,URINE 0.2 EU/dL (0.2)
[2021-03-12 11:31] LABS: BACTERIA,URINE Rare /HPF (None Seen); RBC,URINE 0-2 /HPF (0-2); SQUAMOUS EPITHELIAL CELL,UR Rare /HPF (None Seen); WBC,URINE 0-2 /HPF (0-3)
[2021-03-12 11:36] LABS: FREE T4 (FREE THYROXINE) 1.04 ng/dL (0.76-1.46); PROSTATE SPECIFIC ANTIGEN SCR 2.44 ng/mL (0.00-4.00); THYROID STIMULATING HORMONE 0.968 uIU/mL (0.358-3.74); URIC ACID 3.6 mg/dL (2.6-7.2)
[2021-03-12 11:53] LABS: ALBUMIN 3.9 g/dL (3.4-5.0); BILIRUBIN,TOTAL 0.6 mg/dL (0.2-1.0); CALCIUM, SERUM 9.1 mg/dL (8.5-10.1); CREATININE 1.4 mg/dL (0.6-1.3); POTASSIUM 4.3 mmol/L (3.5-5.1); TOTAL PROTEIN, SERUM 7.3 g/dL (6.4-8.2)
== END 2021-03-12 23:59 | disposition home or self-care (01) ==
LOC: LAB 09:37
PROVIDERS: ATTEND Legal Medicine
DX: I12.9 Hypertensive chronic kidney disease with stage 1 through stage 4 chronic kidney disease, or unspecified chronic kidney disease (principal); E11.22 Type 2 diabetes mellitus with diabetic chronic kidney disease; N18.9 Chronic kidney disease, unspecified; E78.00 Pure hypercholesterolemia, unspecified; E03.9 Hypothyroidism, unspecified; D64.9 Anemia, unspecified; E55.9 Vitamin D deficiency, unspecified; Z00.00 Encounter for general adult medical examination without abnormal findings
CPT/HCPCS: 36415; 80053-TC; 80061-TC; 81001; 82306; 82607-TC; 82728-TC; 83540-TC; 84153-TC; 84402; 84403; 84439-TC; 84443-TC; 84550-TC; 85025-TC

== ENCOUNTER 2021-10-30 00:59 | Emergency (ER) | payer BC ==
[~2021-10-30] VITALS: Ht 175.3 cm; Wt 73.5 kg
--- NOTE | 2021-10-30 01:12 | NUR ---
C/O BILAT FLANK PAIN HX KIDNEY STONES, +DYSURIA, +N/V ALSO MENTIONS UNCONTROLLED DM SINCE FRIDAY BS 200-500. PATIENT ALERT AND ORIENTED X3. AMBULATORY WITH NON LABORED BREATHING. PLACED IN BED 17 ON A MONITOR AND POX.
--- NOTE | 2021-10-30 01:15 | NUR ---
BLOOD AND URINE COLLECTED AND SENT TO LAB.
[2021-10-30] MEDS ORDERED: ONDANSETRON HCL/PF 4 MG/2 ML VIAL IVP ONE (01:30)
[2021-10-30] MEDS ORDERED: IV NS 0.9% 1,000 ML BAG IV ONE (01:30)
[2021-10-30] MEDS ORDERED: MORPHINE SULFATE INJ 2 MG/ML DISP.SYRIN IV ONE (01:30)
[2021-10-30] MEDS ORDERED: MORPHINE SULFATE INJ 4 MG/ML DISP.SYRIN ONE (01:33)
[2021-10-30] MEDS ORDERED: ONDANSETRON HCL/PF 4 MG/2 ML VIAL ONE (01:33)
[2021-10-30 01:50] LABS: BASOPHILS % (AUTO) 0.4 % (0.0-2.0); EOSINOPHILS % (AUTO) 0.1 % (0.0-6.0); HEMATOCRIT 40 % (39-51); HEMOGLOBIN 13.6 g/dL (13.5-17.5); LYMPHOCYTES # (AUTO) 0.5 K/uL (0.8-4.8); LYMPHOCYTES % (AUTO) 13.8 % (20.0-44.0); MEAN CORPUSCULAR HGB CONC 34 g/dl (31.0-36.0); MEAN CORPUSCULAR VOLUME 86 fL (80-96); MONOCYTES # (AUTO) 0.3 K/uL (0.1-1.30); MONOCYTES % (AUTO) 10.3 % (2.0-12.0); NEUTROPHILS # (AUTO) 2.5 K/uL (1.8-8.9); NEUTROPHILS % (AUTO) 75.4 % (43.0-81.0); PLATELET COUNT (AUTO) 165 K/uL (150-450); RED BLOOD CELL COUNT(AUTO) 4.71 MIL/uL (4.5-6.0); WHITE BLOOD COUNT (AUTO) 3.4 K/uL (4.3-11.0)
[2021-10-30 01:51] LABS: BILIRUBIN,URINE NEGATIVE (NEGATIVE); COLOR,URINE YELLOW (YELLOW); LEUKOCYTE ESTERASE ,URINE NEGATIVE (NEGATIVE); NITRITE, URINE NEGATIVE (NEGATIVE); PROTEIN,URINE NEGATIVE (NEGATIVE); UGLUCOSE >=1000 mg/dL (NEGATIVE); UROBILINOGEN,URINE 0.2 EU/dL (0.2)
[2021-10-30 02:02] LABS: CALCIUM, SERUM 8.8 mg/dL (8.5-10.1); CARBON DIOXIDE 29 mmol/L (21-32); CHLORIDE 98 mmol/L (98-107); CREATININE 1.5 mg/dL (0.6-1.3); GLUCOSE 226 mg/dL (74-106); POTASSIUM 4.2 mmol/L (3.5-5.1); SODIUM SERUM 134 mmol/L (136-145); UREA NITROGEN, BLOOD 24 mg/dL (7-18)
[2021-10-30 02:09] LABS: ALANINE AMINOTRANSFERASE 28 U/L (12-78); ALBUMIN 3.7 g/dL (3.4-5.0); ALKALINE PHOSPHATASE 61 U/L (46-116); ASPARTATE AMINOTRANSFERASE 16 U/L (15-37); BILIRUBIN,DIRECT 0.1 mg/dL (0.0-0.2); BILIRUBIN,TOTAL 0.3 mg/dL (0.2-1.0); LIPASE 102 U/L (73-393); TOTAL PROTEIN, SERUM 7.5 g/dL (6.4-8.2)
[2021-10-30] MEDS ORDERED: AZIT250T13 PO (06:16)
[2021-10-30 07:12] VITALS: BP 146/99
--- NOTE | 2021-10-30 07:12 | NUR ---
Patient discharged to home in stable condition. Written and verbal after care instructions given. Patient verbalizes understanding of instruction. Rx given
== END 2021-10-30 07:36 | disposition home or self-care (01) ==
LOC: ER 01:02
DX: U07.1 COVID-19 (principal); J12.82 Pneumonia due to coronavirus disease 2019; N28.1 Cyst of kidney, acquired; K80.20 Calculus of gallbladder without cholecystitis without obstruction; R79.89 Other specified abnormal findings of blood chemistry; I10 Essential (primary) hypertension; E11.9 Type 2 diabetes mellitus without complications; Z79.02 Long term (current) use of antithrombotics/antiplatelets; Z79.4 Long term (current) use of insulin; Z79.84 Long term (current) use of oral hypoglycemic drugs; Z79.899 Other long term (current) drug therapy; Z87.442 Personal history of urinary calculi
CPT/HCPCS: 36415; 71045; 74176; 80048; 80076; 81003; 83690; 84484; 85025; 87426; 96361; 96374; 96375; 99285; C9803; J2270; J2405; J7030

== ENCOUNTER 2022-07-18 08:09 | Outpatient (CLI) | payer BC ==
[~2022-07-18 08:09] MED LIST changes: +AZIT250T13 PO
[2022-07-18 09:25] LABS: BASOPHILS % (AUTO) 0.5 % (0.0-2.0); EOSINOPHILS % (AUTO) 1.4 % (0.0-6.0); HEMATOCRIT 43 % (39-51); HEMOGLOBIN 14.4 g/dL (13.5-17.5); LYMPHOCYTES % (AUTO) 19.6 % (20.0-44.0); MEAN CORPUSCULAR HGB CONC 34 g/dl (31.0-36.0); MEAN CORPUSCULAR VOLUME 84 fL (80-96); MONOCYTES # (AUTO) 0.3 K/uL (0.1-1.30); MONOCYTES % (AUTO) 6.7 % (2.0-12.0); NEUTROPHILS # (AUTO) 3.6 K/uL (1.8-8.9); NEUTROPHILS % (AUTO) 71.8 % (43.0-81.0); PLATELET COUNT (AUTO) 198 K/uL (150-450); RED BLOOD CELL COUNT(AUTO) 5.06 MIL/uL (4.5-6.0)
[2022-07-18 10:04] LABS: BILIRUBIN,URINE NEGATIVE (NEGATIVE); COLOR,URINE YELLOW (YELLOW); LEUKOCYTE ESTERASE ,URINE NEGATIVE (NEGATIVE); NITRITE, URINE NEGATIVE (NEGATIVE); PH,URINE 5.5 (5.0-8.0); PROTEIN,URINE NEGATIVE (NEGATIVE); UGLUCOSE 500 MG/DL mg/dL (NEGATIVE); UROBILINOGEN,URINE 0.2 EU/dL (0.2)
[2022-07-18 10:07] LABS: RBC,URINE NONE SEEN /HPF (0-2)
[2022-07-18 10:08] LABS: BACTERIA,URINE Rare /HPF (None Seen); SQUAMOUS EPITHELIAL CELL,UR Rare /HPF (None Seen); WBC,URINE 0-2 /HPF (0-3)
[2022-07-18 10:09] LABS: URIC ACID CRYSTALS,URINE Few /HPF (None Seen)
[2022-07-18 10:22] LABS: PROSTATE SPECIFIC ANTIGEN SCR 2.63 ng/mL (0.00-4.00); THYROID STIMULATING HORMONE 1.294 uIU/mL (0.358-3.74); URIC ACID 4.6 mg/dL (2.6-7.2)
[2022-07-18 10:37] LABS: ALBUMIN 3.9 g/dL (3.4-5.0); BILIRUBIN,TOTAL 0.5 mg/dL (0.2-1.0); CREATININE 1.2 mg/dL (0.6-1.3); POTASSIUM 4.1 mmol/L (3.5-5.1); TOTAL PROTEIN, SERUM 7.8 g/dL (6.4-8.2)
== END 2022-07-18 23:59 | disposition home or self-care (01) ==
LOC: LAB 08:09
PROVIDERS: ATTEND Legal Medicine
DX: Z00.00 Encounter for general adult medical examination without abnormal findings (principal); E78.00 Pure hypercholesterolemia, unspecified; E11.22 Type 2 diabetes mellitus with diabetic chronic kidney disease; N18.9 Chronic kidney disease, unspecified; E03.9 Hypothyroidism, unspecified; D64.9 Anemia, unspecified; E55.9 Vitamin D deficiency, unspecified
CPT/HCPCS: 36415; 80053-TC; 80061-TC; 81001; 82306; 82607-TC; 82728-TC; 83540-TC; 84153-TC; 84402; 84403; 84443-TC; 84550-TC; 85025-TC

== ENCOUNTER 2023-08-13 07:56 | Outpatient (CLI) | payer BC ==
[2023-08-13 09:34] LABS: BASOPHILS % (AUTO) 0.5 % (0.0-2.0); HEMATOCRIT 46 % (39-51); HEMOGLOBIN 15.1 g/dL (13.5-17.5); LYMPHOCYTES # (AUTO) 1.1 K/uL (0.8-4.8); LYMPHOCYTES % (AUTO) 26.8 % (20.0-44.0); MEAN CORPUSCULAR HEMOGLOBIN 28 PG (26.0-33.0); MEAN CORPUSCULAR HGB CONC 33 g/dl (31.0-36.0); MEAN CORPUSCULAR VOLUME 85 fL (80-96); MONOCYTES # (AUTO) 0.3 K/uL (0.1-1.30); MONOCYTES % (AUTO) 8.3 % (2.0-12.0); NEUTROPHILS # (AUTO) 2.6 K/uL (1.8-8.9); NEUTROPHILS % (AUTO) 63.4 % (43.0-81.0); PLATELET COUNT (AUTO) 176 K/uL (150-450); RED BLOOD CELL COUNT(AUTO) 5.32 MIL/uL (4.5-6.0); RED CELL DISTRIBUTION WIDTH 14.1 % (11.5-15.0); WHITE BLOOD COUNT (AUTO) 4.2 K/uL (4.3-11.0)
[2023-08-13 09:36] LABS: APPEARANCE,URINE CLEAR (CLEAR); BILIRUBIN,URINE NEGATIVE (NEGATIVE); BLOOD, URINE NEGATIVE Ery/uL (NEGATIVE); COLOR,URINE YELLOW (YELLOW); KETONES,URINE NEGATIVE (NEGATIVE); LEUKOCYTE ESTERASE ,URINE NEGATIVE (NEGATIVE); NITRITE, URINE NEGATIVE (NEGATIVE); PROTEIN,URINE NEGATIVE (NEGATIVE); UGLUCOSE 2+ mg/dL (NEGATIVE); UROBILINOGEN,URINE 0.2 EU/dL (0.2)
[2023-08-13 09:42] LABS: ADD URINE CULTURE NO; BACTERIA,URINE Rare /HPF (None Seen); RBC,URINE 0-2 /HPF (0-2); SQUAMOUS EPITHELIAL CELL,UR Rare /HPF (None Seen); WBC,URINE 0-2 /HPF (0-3)
[2023-08-13 10:09] LABS: PROSTATE SPECIFIC ANTIGEN SCR 3.04 ng/mL (0.00-4.00); THYROID STIMULATING HORMONE 1.863 uIU/mL (0.358-3.74); URIC ACID 4.3 mg/dL (2.6-7.2)
[2023-08-13 10:18] LABS: ALBUMIN 4.3 g/dL (3.4-5.0); BILIRUBIN,TOTAL 0.6 mg/dL (0.2-1.0); CALCIUM, SERUM 9.9 mg/dL (8.5-10.1); CREATININE 1.1 mg/dL (0.6-1.3); POTASSIUM 3.5 mmol/L (3.5-5.1); TOTAL PROTEIN, SERUM 8.6 g/dL (6.4-8.2)
[2023-08-14 04:06] LABS: FOLIC ACID > 20.0 ng/mL (>3.0)
[2023-08-14 05:08] LABS: VIT D, 25-HYDROXY 38.1 ng/mL (30.0-100.0)
[2023-08-14 13:07] LABS: ALBUMIN/CREATININE RATIO 34 mg/g creat (0-29)
[2023-08-21 21:06] LABS: *TESTOSTERONE, FREE (DIRECT) 6.7 pg/mL (6.6-18.1)
== END 2023-08-13 23:59 | disposition home or self-care (01) ==
LOC: LAB 07:56
PROVIDERS: ATTEND Legal Medicine
DX: Z00.00 Encounter for general adult medical examination without abnormal findings (principal); E11.22 Type 2 diabetes mellitus with diabetic chronic kidney disease; I12.9 Hypertensive chronic kidney disease with stage 1 through stage 4 chronic kidney disease, or unspecified chronic kidney disease; N18.9 Chronic kidney disease, unspecified; R53.1 Weakness; E78.00 Pure hypercholesterolemia, unspecified; N40.0 Benign prostatic hyperplasia without lower urinary tract symptoms; E55.9 Vitamin D deficiency, unspecified
CPT/HCPCS: 36415; 80053-TC; 80061-TC; 81001; 82306; 82607-TC; 82728-TC; 83540-TC; 84153-TC; 84402-TC; 84443-TC; 84550-TC; 85025-TC; 87086-TC

== ENCOUNTER 2023-08-18 08:35 | Outpatient (CLI) | payer BC | END 2023-08-18 23:59 | disposition home or self-care (01) | LOC: US 08:35 | DX: N28.1 Cyst of kidney, acquired (principal) | CPT/HCPCS: 76770-TC ==